=== PATIENT | male | born 1970 | race Caucasian/White ===

== ENCOUNTER 2018-08-28 13:25 | Emergency (ER) | payer OTHER ==
[~2018-08-28] VITALS: Ht 180.3 cm; Wt 90.7 kg
--- NOTE | 2018-08-28 13:21 | NUR ---
ED Nurse Note: Pt BIBA and [employer] due to being tased. Pt was going to be put on a hold by PET team and did not want that. He's here for medical clearance and [employer] at the bedside.
[2018-08-28 13:22] VITALS: BP 100/65
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
[2018-08-28] MEDS ORDERED: QUETIAPINE FUM200 MG ORAL (13:34)
[2018-08-28] MEDS ORDERED: DIVALPROEX SOD250 M1 PO (13:34)
[2018-08-28] MEDS ORDERED: DIVALPROEX SOD500 M2 PO (13:34)
[2018-08-28] MEDS ORDERED: RISPERDAL2 MG ORAL (13:34)
[2018-08-28] MEDS ORDERED: Lidocaine 2% 20mg/ml/Epi 0.005mg/ml 20ml vial INJ ONE (13:45)
[2018-08-28] MEDS ORDERED: Bacitracin Oint UD TOPIC ONE (13:45)
[2018-08-28] MEDS ORDERED: Tetanus/Diptheria/Pertussis Vaccine 0.5ml Syr IM ONE (13:45)
[2018-08-28] MEDS ORDERED: Lidocaine 1% Plain 30 ml INJ ONE (13:45)
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
--- NOTE | 2018-08-28 14:09 | NUR ---
ED Nurse Note: Pt went down to CT.
--- NOTE | 2018-08-28 14:18 | NUR ---
ED Nurse Note: Pt back from CT.
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
[2018-08-28] MEDS ORDERED: CLARITIN10 MG ORAL (14:58)
[2018-08-28] MEDS ORDERED: BACITRACIN-P28.35 GM TP (14:58)
[2018-08-28] MEDS ORDERED: CEPHALEXIN500 MG ORAL (14:58)
[2018-08-28] MEDS ORDERED: TYLENOL EXTRA500 MG ORAL (14:58)
[2018-08-28 15:03] VITALS: BP 101/65
--- NOTE | 2018-08-28 15:03 | NUR ---
ER DISCHARGE NOTE: Patient is cleared to be discharged per ERMD, pt is aox4, on room air, with stable vital signs. pt was given dc and prescription instructions, pt was able to verbalize understanding, pt id band removed without complications. pt is able to ambulate with steady gait. pt took all belongings. Pt left in [employer] custody.
== END 2018-08-28 15:03 | disposition home or self-care (01) ==
LOC: EDBD 13:25 → EMR 14:42
DX: S09.90XA Unspecified injury of head, initial encounter (principal); S20.459A Superficial foreign body of unspecified back wall of thorax, initial encounter; F20.9 Schizophrenia, unspecified; J32.9 Chronic sinusitis, unspecified; Z23 Encounter for immunization; Y35.893A Legal intervention involving other specified means, suspect injured, initial encounter; Y92.199 Unspecified place in other specified residential institution as the place of occurrence of the external cause
CPT/HCPCS: 10120; 70450; 70486; 90471; 90715; 99284; J2001